=== PATIENT | female | born 1965 | race Caucasian/White ===

== ENCOUNTER 2018-04-02 09:33 | Inpatient (IN) | payer MEDICARE, OTHER ==
[2018-04-02] MEDS ORDERED: SODIUM CHLORIDE 0.9% 1,000 ML IV STA (10:33)
[2018-04-02] MEDS ORDERED: ONDANSETRON 4 MG/2 ML VIAL IVP STA (10:33)
[2018-04-02] MEDS ORDERED: FAMOTIDINE 20 MG/2 ML VIAL IV STA (10:34)
[2018-04-02 11:10] LABS: Basophils # (A) 0.1 k/uL (0-0.2); Basophils % (A) 1 %; Eosinophils # (A) 0.1 k/uL (0-0.7); Eosinophils % (A) 2 %; HCT 40.4 % (34.0-46.0); Lymphocytes # (A) 2.7 k/uL (1.0-4.8); Lymphocytes % (A) 31 %; MCH 30.6 pg (25.0-35.0); MCHC 32.2 g/dL (31.0-37.0); MCV 95.1 fL (80.0-100.0); Monocytes # (A) 0.7 k/uL (0-1.0); Monocytes % (A) 8 %; Neutrophils # (A) 4.9 k/uL (1.3-7.7); Neutrophils % (A) 56 %; Platelet Count 368 k/uL (150-450); RBC 4.25 m/uL (3.80-5.40); RDW 12.6 % (11.5-15.5); WBC 8.7 k/uL (3.8-10.6)
[2018-04-02 11:20] LABS: ALT 16 U/L (9-52); AST 17 U/L (14-36); Albumin 3.6 g/dL (3.5-5.0); Alkaline Phosphatase 55 U/L (38-126); Amylase 37 U/L (30-110); Anion Gap 8 mmol/L; Appearance,Urine Clear (Clear); Bilirubin,Urine Negative (Negative); Blood Urea Nitrogen 19 mg/dL (7-17); Blood,Urine Negative (Negative); Calcium 8.8 mg/dL (8.4-10.2); Carbon Dioxide 31 mmol/L (22-30); Chloride 103 mmol/L (98-107); Color,Urine Yellow; Glucose 83 mg/dL (74-99); Glucose,Urine (UA) Negative (Negative); Ketones,Urine Negative (Negative); Leukocyte Esterase,Urine Small (Negative); Lipase 52 U/L (23-300); Mucus,Urine Moderate /hpf; Nitrite,Urine Negative (Negative); PH, Urine 6.5 (5.0-8.0); Potassium 3.8 mmol/L (3.5-5.1); Protein,Urine Trace (Negative); Sodium 142 mmol/L (137-145); Specific Gravity,Urine 1.018 (1.001-1.035); Squamous Epithelial Cell,Urine 3 /hpf (0-4); Total Bilirubin 0.3 mg/dL (0.2-1.3); Total Protein 6.5 g/dL (6.3-8.2); Urobilinogen,Urine <2.0 mg/dL (<2.0); WBC,Urine 3 /hpf (0-5)
--- NOTE | 2018-04-02 12:19 | ED ---
General Adult HPI - General Chief complaint: Abdominal Pain Stated complaint: weakness, fatigue, abdominal problems Time Seen by Provider: 04/02/18 10:08 Source: patient, RN notes reviewed Mode of arrival: ambulatory Limitations: no limitations - History of Present Illness Initial comments: Patient is a 52-year-old female presented to the emergency room today with chief complaint of abdominal pain. Patient does admit that she's been expressing abdominal discomfort over the last several months. She states that she has had imaging and blood work obtained. She's been to [facility]. Patient states that she's lost 60 pounds over the last several months. She states that she's had a decreased appetite. She states that she's had bouts of constipation was given medication and then had diarrhea. She states bowel movements are normal at this time. States still expressing pain throughout the abdomen. Patient denies any other complaints or symptoms. Patient denies any recent fever, chills, shortness of breath, chest pain, back pain, headaches or visual changes, or any other complaints - Related Data Home Medications Medication Instructions Recorded Confirmed Gabapentin 800 mg PO TID 03/25/15 04/02/18 Meclizine [Antivert] 25 mg PO BID 03/26/15 04/02/18 clonazePAM [KlonoPIN] 1 mg PO TID 03/26/15 04/02/18 Albuterol Sulfate [Proair Hfa] 2 puff INHALATION RT-DAILY 07/19/15 04/02/18 Ibuprofen [Motrin] 1 tab PO TID 07/19/15 04/02/18 SUMAtriptan [Imitrex] 5 mg INHALATION DAILY 07/19/15 04/02/18 Albuterol Nebulized [Ventolin 2.5 mg INHALATION RT-Q4H 04/02/18 04/02/18 Nebulized] Cholecalciferol [Vitamin D3] 1,000 unit PO DAILY 04/02/18 04/02/18 Levothyroxine Sodium [Synthroid] 75 mcg PO DAILY 04/02/18 04/02/18 Methocarbamol [Robaxin-750] 750 mg PO TID 04/02/18 04/02/18 Ondansetron [Zofran] 4 mg PO Q8HR PRN 04/02/18 04/02/18 Polyethylene Glycol 3350 [Miralax] 17 gm PO DAILY 04/02/18 04/02/18 lamoTRIgine [LaMICtal] 200 mg PO DAILY 04/02/18 04/02/18 oxyCODONE-APAP 10-325MG [Percocet 1 tab PO TID 04/02/18 04/02/18 10-325 mg] traZODone HCL [Desyrel] 100 mg PO HS 04/02/18 04/02/18 Allergies Allergy/AdvReac Type Severity Reaction Status Date / Time pregabalin [From Lyrica] Allergy Anaphylaxis Verified 04/02/18 10:18 Review of Systems ROS Statement: Those systems with pertinent positive or pertinent negative responses have been documented in the HPI. ROS Other: All systems not noted in ROS Statement are negative. Past Medical History Past Medical History: Pneumonia, Thyroid Disorder Additional Past Medical History / Comment(s): chronic pain, pneumonia X2 (01/26), IBS History of Any Multi-Drug Resistant Organisms: None Reported Past Surgical History: Section, Cholecystectomy, Orthopedic Surgery Additional Past Surgical History / Comment(s): thyroidectomy, cervical, lumbar shoulder repair Past Anesthesia/Blood Transfusion Reactions: Previous Problems w/ Anesthesia Additional Past Anesthesia/Blood Transfusion Reaction / Comment(s): Trouble waking up with anesthesia Past Psychological History: No Psychological Hx Reported Smoking Status: Current every day smoker Past Alcohol Use History: None Reported Past Drug Use History: None Reported - Past Family History Mother Additional Family Medical History / Comment(s): VRE General Exam - General Exam Comments Initial Comments: General: The patient is awake and alert, in no distress, and does not appear acutely ill. Eye: Pupils are equal, round and reactive to light. Extra-ocular movements are intact. No nystagmus. There is normal conjunctiva bilaterally. No signs of icterus. Ears, nose, mouth and throat: There are moist mucous membranes and no oral lesions. Neck: The neck is supple, there is no tenderness or JVD. Cardiovascular: There is a regular rate and rhythm. No murmur, rub or gallop is appreciated. Respiratory: Lungs are clear to auscultation, respirations are non-labored, breath sounds are equal. No wheezes, stridor, rales, or rhonchi. Gastrointestinal: Soft and palpation. Patient does have mild tenderness in epigastric and upper and lower parts. No rebound, guarding or CVA tenderness. Musculoskeletal: Normal ROM, no tenderness. Sensation intact. Strength 5/5. Pulses equal bilaterally 2+. Neurological: A&O x 3. CN II-XII intact, There are no obvious motor or sensory deficits. Coordination appears grossly intact. Speech is normal. Skin: Skin is warm and dry and no rashes or lesions are noted. Psychiatric: Cooperative, appropriate mood & affect, normal judgment. Limitations: no limitations Course Vital Signs 04/02/18 04/02/18 04/02/18 09:48 12:54 14:00 Temperature 98.7 F Pulse Rate 107 H 76 73 Respiratory 18 18 18 Rate Blood Pressure 90/58 85/55 93/61 O2 Sat by Pulse 96 95 97 Oximetry 04/02/18 04/02/18 04/02/18 14:01 14:15 14:26 Temperature 98.4 F Pulse Rate 75 Respiratory 18 18 Rate Blood Pressure 93/61 93/61 98/70 O2 Sat by Pulse 98 97 100 Oximetry Medical Decision Making - Medical Decision Making Patient reexamined at this time is still experiencing some lower abdominal discomfort. Patient's blood pressure she's been hypotensive 90s over 70s here in the emergency room. Patient's CT the abdomen and pelvis does show proctocolitis. She does have a 64 with also last several months. Labs been reviewed. Patient will be admitted to the hospital with consult to GI. - Lab Data Result diagrams: 04/02/18 10:55 04/02/18 10:55 Lab Results 04/02/18 04/02/18 04/02/18 Range/Units 10:55 10:55 10:55 WBC 8.7 (3.8-10.6) k/uL RBC 4.25 (3.80-5.40) m/uL Hgb 13.0 (11.4-16.0) gm/dL Hct 40.4 (34.0-46.0) % MCV 95.1 (80.0-100.0) fL MCH 30.6 (25.0-35.0) pg MCHC 32.2 (31.0-37.0) g/dL RDW 12.6 (11.5-15.5) % Plt Count 368 (150-450) k/uL Neutrophils % 56 % Lymphocytes % 31 % Monocytes % 8 % Eosinophils % 2 % Basophils % 1 % Neutrophils # 4.9 (1.3-7.7) k/uL Lymphocytes # 2.7 (1.0-4.8) k/uL Monocytes # 0.7 (0-1.0) k/uL Eosinophils # 0.1 (0-0.7) k/uL Basophils # 0.1 (0-0.2) k/uL Sodium 142 (137-145) mmol/L Potassium 3.8 (3.5-5.1) mmol/L Chloride 103 (98-107) mmol/L Carbon Dioxide 31 H (22-30) mmol/L Anion Gap 8 mmol/L BUN 19 H (7-17) mg/dL Creatinine 0.58 (0.52-1.04) mg/dL Est GFR (CKD-EPI)AfAm >90 (>60 ml/min/1.73 sqM) Est GFR (CKD-EPI)NonAf >90 (>60 ml/min/1.73 sqM) Glucose 83 (74-99) mg/dL Calcium 8.8 (8.4-10.2) mg/dL Total Bilirubin 0.3 (0.2-1.3) mg/dL AST 17 (14-36) U/L ALT 16 (9-52) U/L Alkaline Phosphatase 55 (38-126) U/L Total Protein 6.5 (6.3-8.2) g/dL Albumin 3.6 (3.5-5.0) g/dL Amylase 37 (30-110) U/L Lipase 52 (23-300) U/L Urine Color Yellow Urine Appearance Clear (Clear) Urine pH 6.5 (5.0-8.0) Ur Specific [place] 1.018 (1.001-1.035) Urine Protein Trace H (Negative) Urine Glucose (UA) Negative (Negative) Urine Ketones Negative (Negative) Urine Blood Negative (Negative) Urine Nitrite Negative (Negative) Urine Bilirubin Negative (Negative) Urine Urobilinogen <2.0 (<2.0) mg/dL Ur Leukocyte Esterase Small H (Negative) Urine WBC 3 (0-5) /hpf Ur Squamous Epith Cells 3 (0-4) /hpf Urine Mucus Moderate H (None) /hpf Disposition Clinical Impression: Colitis Disposition: ADMITTED IP TO THIS HOSP Condition: Good Is patient prescribed a controlled substance at d/c from ED?: No Referrals: Soledad Hernandez MD [Primary Care Provider] - 1-2 days Time of Disposition: 14:53
--- NOTE | 2018-04-02 12:31 | CT ---
EXAMINATION TYPE: CT abdomen pelvis w con DATE OF EXAM: 04/02/2018 COMPARISON: None HISTORY: Generalized abd pain, fatigue CT DLP: 533.9 mGycm CONTRAST: CT scan of the abdomen and pelvis is performed without Oral Contrast and with IV Contrast, patient in jected with 100 mL of Isovue 300. FINDINGS: LUNG BASES-: No visible nodule. No infiltrate. LIVER/GB: The gallbladder surgically absent. No space occupying hepatic lesion. Biliary tree is of normal caliber. PANCREAS: No inflammation. No distinct mass. SPLEEN: No splenic enlargement. No lesion seen. ADRENALS: No nodule. No thickening. KIDNEYS/BLADDER: No hydronephrosis. Nonobstructing left-sided nephrolithiasis with 2 calculi measuri ng 4 and 3 mm respectively. No distinct renal mass. Urinary bladder grossly unremarkable. BOWEL: Normal appendix. There is rectosigmoid wall thickening which may reflect proctocolitis nonspec ific type. GENITAL ORGANS: No gross abnormality. LYMPH NODES: No greater than 1cm abdominal or pelvic lymph nodes are appreciated. AORTA: No significant abnormality. OSSEOUS STRUCTURES: No significant abnormality is seen. OTHER: No significant additional abnormality is seen. IMPRESSION: 1. Suspect nonspecific proctocolitis.
[2018-04-02] MEDS ORDERED: SODIUM CHLORIDE 0.9% 500 ML 500 ML IV ONE (13:56)
[2018-04-02] MEDS ORDERED: NALOXONE 0.4 MG/ML 1 ML VIAL IV PRN (14:54)
[2018-04-02] MEDS ORDERED: SODIUM CHLORIDE 0.9% 1,000 ML IV ONE (14:54)
[2018-04-02] MEDS ORDERED: ALBUTEROL NEBULIZED 2.5 MG/3 ML INHALATION SCH (20:00)
[2018-04-02] MEDS ORDERED: ALBUTEROL NEBULIZED 2.5 MG/3 ML INHALATION PRN (20:13)
[2018-04-02] MEDS ORDERED: MELATONIN 3 MG TABLET PO PRN (20:32)
[2018-04-02] MEDS: CHOLECALCIFEROL 1,000 UNIT TAB PO SCH (21:23)
[2018-04-02] MEDS: GABAPENTIN 400 MG CAP PO SCH (21:23)
[2018-04-02] MEDS: MECLIZINE 25 MG TAB PO PRN (21:23)
[2018-04-02] MEDS: clonazePAM 1 MG TAB PO SCH (21:23)
[2018-04-02] MEDS: FAMOTIDINE 20 MG TAB PO SCH (21:24)
[2018-04-02] MEDS: HEPARIN SODIUM,PORCINE 5,000 UNIT/ML 1 ML VIAL SQ SCH (21:24)
[2018-04-02] MEDS: oxyCODONE-APAP 10-325MG 1 EACH TAB PO PRN (21:24)
[2018-04-02] MEDS: traZODone HCL 100 MG TAB PO SCH (21:24)
[2018-04-02] MEDS: NICOTINE 21MG/24HR PATCH TRANSDERM SCH (21:33)
[2018-04-02] MEDS: LEVOFLOXACIN 500MG-D5W PMX 500 MG in DEXTROSE/WATER 1 100ML.BAG IVPB SCH (22:19)
[2018-04-02] MEDS ORDERED: LORazepam 0.5 MG TAB PO PRN (22:21)
[2018-04-02] MEDS ORDERED: ACETAMINOPHEN TAB 500 MG TAB PO PRN (22:21)
[2018-04-02] MEDS: METHOCARBAMOL 750 MG TAB PO SCH (23:14)
--- NOTE | 2018-04-03 02:13 | HP ---
HISTORY AND PHYSICAL DATE OF SERVICE: 04/02/2018 CHIEF COMPLAINT: Fatigue, abdominal pain. HISTORY OF PRESENT ILLNESS: This 52-year-old woman with a past medical history of multiple medical problems such as fibromyalgia, memory impairment, hypothyroidism, chronic pain syndrome, irritable bowel syndrome, cholecystectomy, being followed by in the outpatient setting, has been complaining of abdominal symptoms for the last several months. The patient has also been to [facility] because of increasing difficulty with abdominal pain and symptoms. The patient came to [facility] and was admitted for further evaluation and treatment. A CT scan of the abdomen and pelvis was done which showed diffuse nonspecific proctocolitis. The patient was admitted for evaluation and treatment. There is no history of fevers or rigors. No history of headache, loss of consciousness, seizures. PAST MEDICAL HISTORY: History of memory impairment, fibromyalgia, history of IBS, chronic pain syndrome, neuropathy. MEDICATIONS: Prior to admission include home medications: 1. Trazodone 100 mg at bedtime. 2. Percocet t.i.d. 3. Lamictal 200 mg. 4. Klonopin 1 mg t.i.d. 5. Imitrex 5 mg daily. 6. MiraLAX 17 g daily. 7. Zofran 4 mg every 8 hours. 8. Robaxin 750 p.o. t.i.d. 9. Antivert 25 mg b.i.d. 10.Synthroid 75 mcg. 11.Motrin 1 tablet p.o. t.i.d. 12.Gabapentin 800 mg t.i.d. 13.Vitamin D 3000 daily. 15.Ventolin 2.5 every 4 hours p.r.n. ALLERGIES: LYRICA. FAMILY HISTORY: History of cancer, dementia, diabetes mellitus in the family. SOCIAL HISTORY: History of smoking. History of THC. REVIEW OF SYSTEMS: ENT: No diminished hearing or vision. CARDIOVASCULAR: No angina or palpitations. RESPIRATORY: No cough or hemoptysis. GI: No nausea or vomiting. : No dysuria or hematuria. NERVOUS SYSTEM: No numbness or weakness. ALLERGY/IMMUNOLOGY: As mentioned. HEMATOLOGY/ONCOLOGY: No history or anemia. ENDOCRINE: No history of diabetes or hypothyroidism. CONSTITUTIONAL: As mentioned. DERMATOLOGY: Negative. RHEUMATOID: Negative. PSYCH: As mentioned earlier. PHYSICAL EXAM: Patient is alert, oriented x3. Pulse 72, blood pressure 192/59, respirations 16, temperature 98.2, pulse ox 94% on room air. HEENT: Conjunctivae normal. Oral mucosa moist. NECK: No jugular venous distention. No lymph node enlargement. CARDIOVASCULAR: S1 and S2 muffled. LUNGS: Breath sounds diminished in the bases. Scattered rhonchi and crackles. ABDOMEN: Soft, nontender. No mass palpable. LEGS: No edema, no swelling. NERVOUS SYSTEM: Higher functions as mentioned. Moves all limbs with no focal deficits. LYMPHATIC: NO lymph nodes palpable in the neck, axillae or groin. LAB STUDIES: At this time, CBC within normal limits. BMP within normal limits. UA noted. ASSESSMENT: 1. Acute proctocolitis with abdominal discomfort, for evaluation. 2. History of fibromyalgia. 3. History of memory impairment. 4. History of pneumonia. 5. Hypothyroidism. 6. Chronic pain syndrome. 7. History of irritable bowel syndrome. 8. History of peripheral neuropathy. 9. History of section. 10.History of nicotine dependence. 11.Bipolar, depression. 12.History of nicotine dependence. RECOMMENDATIONS AND DISCUSSION: This 52-year-old woman who presented with multiple complex medical issues, we will monitor the patient closely, continue the current management and symptomatic treatment. We will initiate symptomatic treatment. Empiric antibiotics will be given. Otherwise, I would also recommend Gastroenterology consultation. Repeat labs. Guarded prognosis because of multiple complex medical issues. See orders for details. Patient is on clear liquids currently. Home medication reconciliation was noted. Further recommendations to follow. MMODL / IJN: [id number] / GARCÍA
[2018-04-03] MEDS: SODIUM CHLORIDE 0.9% 1,000 ML IV SCH ×2 (05:49→16:33)
[2018-04-03] MEDS: LEVOTHYROXINE 75 MCG TAB PO SCH (05:49)
[2018-04-03] MEDS: NICOTINE 21MG/24HR PATCH TRANSDERM SCH (07:36)
[2018-04-03] MEDS: PANTOPRAZOLE 40 MG/10 ML VIAL IVP SCH (07:36)
[2018-04-03] MEDS: lamoTRIgine 100 MG TAB PO SCH (07:37)
[2018-04-03] MEDS: METHOCARBAMOL 750 MG TAB PO SCH ×3 (07:37→21:34)
[2018-04-03] MEDS: HEPARIN SODIUM,PORCINE 5,000 UNIT/ML 1 ML VIAL SQ SCH ×2 (07:37→21:34)
[2018-04-03] MEDS: CHOLECALCIFEROL 1,000 UNIT TAB PO SCH (07:38)
[2018-04-03] MEDS: GABAPENTIN 400 MG CAP PO SCH ×3 (07:38→21:34)
[2018-04-03] MEDS: FAMOTIDINE 20 MG TAB PO SCH ×2 (07:38→21:34)
[2018-04-03] MEDS: POLYETHYLENE GLYCOL 3350 17 GM POWD.PACK PO SCH (07:39)
[2018-04-03] MEDS: clonazePAM 1 MG TAB PO SCH ×3 (07:43→21:41)
[2018-04-03] MEDS: metroNIDAZOLE-NS PMX 500 MG in SALINE 1 100ML.BAG IVPB SCH ×3 (07:43→16:33)
[2018-04-03 08:12] LABS: Basophils % (A) 0 %; Eosinophils # (A) 0.1 k/uL (0-0.7); Eosinophils % (A) 1 %; HCT 32.8 % (34.0-46.0); HGB 10.3 gm/dL (11.4-16.0); Lymphocytes # (A) 2.9 k/uL (1.0-4.8); Lymphocytes % (A) 45 %; MCHC 31.5 g/dL (31.0-37.0); MCV 95.2 fL (80.0-100.0); Mean Platelet Volume 7.2; Monocytes # (A) 0.6 k/uL (0-1.0); Monocytes % (A) 8 %; Neutrophils # (A) 2.9 k/uL (1.3-7.7); Neutrophils % (A) 43 %; Platelet Count 290 k/uL (150-450); RBC 3.44 m/uL (3.80-5.40); RDW 12.8 % (11.5-15.5); WBC 6.6 k/uL (3.8-10.6)
[2018-04-03 08:14] LABS: ALT 21 U/L (9-52); AST 14 U/L (14-36); Albumin 2.4 g/dL (3.5-5.0); Alkaline Phosphatase 47 U/L (38-126); Anion Gap 2 mmol/L; Blood Urea Nitrogen 13 mg/dL (7-17); Calcium 7.7 mg/dL (8.4-10.2); Carbon Dioxide 28 mmol/L (22-30); Chloride 112 mmol/L (98-107); Glucose 75 mg/dL (74-99); Potassium 4.1 mmol/L (3.5-5.1); Sodium 142 mmol/L (137-145); Total Bilirubin 0.2 mg/dL (0.2-1.3); Total Protein 4.8 g/dL (6.3-8.2)
[2018-04-03] MEDS: ONDANSETRON 4 MG/2 ML VIAL IVP PRN ×2 (08:35→16:34)
[2018-04-03] MEDS: MECLIZINE 25 MG TAB PO PRN (08:36)
[2018-04-03] MEDS: ALBUTEROL NEBULIZED 2.5 MG/3 ML INHALATION SCH (08:41)
[2018-04-03] MEDS: IMITREX INHALATION SCH (11:07)
[2018-04-03] MEDS: traZODone HCL 100 MG TAB PO SCH (21:34)
[2018-04-03] MEDS: LEVOFLOXACIN 500MG-D5W PMX 500 MG in DEXTROSE/WATER 1 100ML.BAG IVPB SCH (21:35)
[2018-04-03] MEDS: MECLIZINE 25 MG TAB PO SCH (21:35)
--- NOTE | 2018-04-03 22:07 | PN ---
PROGRESS NOTE DATE OF SERVICE: 04/03/2018 This 52-year-old woman who was admitted with acute proctocolitis with abdominal discomfort is being closely monitored at this time. No chest pain. No palpitations. No fever. The patient is on broad-spectrum IV antibiotics empirically. No chest pain. No palpitation. PHYSICAL EXAM: Alert and oriented x3. Pulse 71, blood pressure 87/52, respirations 16, temperature 97.2, pulse ox 98% on room air. HEENT: Conjunctivae normal. Oral mucosa moist. Neck is no jugular venous distention. No lymph node enlargement. CARDIOVASCULAR: S1, S2. RESPIRATORY: Breath sounds diminished in the bases. No rhonchi, no crackles. ABDOMEN: Soft, nontender. No mass palpable. LEGS: No edema. NERVOUS SYSTEM: Higher functions as mentioned. Moves all four limbs. No focal deficits. LYMPHATIC: No lymphadenopathy in the neck, axillae, groin. SKIN: No ulcer, rash, bleeding. LAB STUDIES: At this time shows WBC 6.2, hemoglobin 10.3, and calcium 7.7. ASSESSMENT: 1. Acute proctocolitis with abdominal discomfort for evaluation. 2. History of fibromyalgia. 3. History of memory impairment. 4. History of pneumonia. 5. Relative hypotension. 6. Hypothyroidism. 7. Chronic pain syndrome. 8. Irritable bowel syndrome. 9. Peripheral neuropathy. 10.History of section. 11.Remote history of nicotine dependence. 12.Bipolar, depression. 13.History of nicotine dependence. RECOMMENDATIONS AND DISCUSSION: I recommend to continue current management, continue monitoring, and symptomatic treatment. Otherwise at this time I recommend continue with current medications. Continue with empiric antibiotics. I would also recommend 8:00 am cortisone. Guarded prognosis because of multiple complex medical issues. Further recommendations to follow. MMODL / IJN: [id number] /
[2018-04-04] MEDS: metroNIDAZOLE-NS PMX 500 MG in SALINE 1 100ML.BAG IVPB SCH ×4 (00:29→23:22)
[2018-04-04] MEDS: SODIUM CHLORIDE 0.9% 1,000 ML IV SCH ×3 (00:31→15:53)
[2018-04-04] MEDS: LEVOTHYROXINE 75 MCG TAB PO SCH (06:10)
[2018-04-04] MEDS: NICOTINE 21MG/24HR PATCH TRANSDERM SCH (07:42)
[2018-04-04] MEDS: METHOCARBAMOL 750 MG TAB PO SCH ×3 (07:43→20:50)
[2018-04-04] MEDS: lamoTRIgine 100 MG TAB PO SCH (07:43)
[2018-04-04] MEDS: GABAPENTIN 400 MG CAP PO SCH ×3 (07:43→20:50)
[2018-04-04] MEDS: PANTOPRAZOLE 40 MG/10 ML VIAL IVP SCH (07:44)
[2018-04-04] MEDS: IMITREX INHALATION SCH (07:45)
[2018-04-04] MEDS: POLYETHYLENE GLYCOL 3350 17 GM POWD.PACK PO SCH (07:45)
[2018-04-04] MEDS: HEPARIN SODIUM,PORCINE 5,000 UNIT/ML 1 ML VIAL SQ SCH ×2 (07:45→20:49)
[2018-04-04] MEDS: clonazePAM 1 MG TAB PO SCH ×3 (07:46→20:50)
[2018-04-04] MEDS: ONDANSETRON 4 MG/2 ML VIAL IVP PRN ×2 (07:46→15:54)
[2018-04-04] MEDS: MECLIZINE 25 MG TAB PO SCH ×2 (07:46→20:50)
[2018-04-04] MEDS: CHOLECALCIFEROL 1,000 UNIT TAB PO SCH (07:47)
[2018-04-04] MEDS: FAMOTIDINE 20 MG TAB PO SCH ×2 (07:47→20:49)
[2018-04-04] MEDS: ALBUTEROL NEBULIZED 2.5 MG/3 ML INHALATION SCH (08:56)
[2018-04-04 10:03] LABS: Anion Gap 5 mmol/L; Blood Urea Nitrogen 8 mg/dL (7-17); Carbon Dioxide 28 mmol/L (22-30); Chloride 111 mmol/L (98-107); Glucose 125 mg/dL (74-99); Sodium 144 mmol/L (137-145)
--- NOTE | 2018-04-04 19:48 | PN ---
PROGRESS NOTE DATE OF SERVICE: 04/04/2018 This 52-year-old woman was admitted with possible proctocolitis has been closely monitored. No chest pain. No palpitations. No fever. Patient has been on empiric antibiotics. Gastroenterology evaluation has been sought. PHYSICAL EXAM: Alert and oriented x3. Pulse 74, blood pressure 91/53, respiration 20, temperature 98.2, pulse ox 97% on room air. HEENT: Conjunctivae normal. Oral mucosa moist. Neck is no jugular venous distention. No carotid bruit. No lymph node enlargement. CARDIOVASCULAR: S1, S2. RESPIRATORY: Breath sounds diminished in the bases. No rhonchi, no crackles. ABDOMEN: Soft. Mild diffuse discomfort. No guarding. No mass palpable. LEGS: No edema. NERVOUS SYSTEM: No focal deficits. LABS: WBC 6.2, hemoglobin is 10.3. Other labs are noted. ASSESSMENT: 1. Acute proctocolitis with abdominal discomfort for evaluation. 2. History of fibromyalgia. 3. History of memory impairment. 4. History of pneumonia. 5. Relative hypotension. 6. Hypothyroidism. 7. Chronic pain syndrome. 8. Irritable bowel syndrome. 9. Peripheral neuropathy. 10.History of section. 11.Remote history of nicotine dependence. 12.Bipolar, depression. RECOMMENDATIONS AND DISCUSSION: In this 52-year-old woman who presented with multiple complex medical issues, we will monitor the patient closely. Continue the current management and symptomatic treatment. Otherwise at this time, we will continue the antibiotics and advise a diet. Closely follow with Gastroenterology. Guarded prognosis. Further recommendations to follow. MMODL / IJN: [id number] /
[2018-04-04] MEDS: traZODone HCL 100 MG TAB PO SCH (20:49)
[2018-04-04] MEDS: oxyCODONE-APAP 10-325MG 1 EACH TAB PO PRN (20:50)
[2018-04-04] MEDS: LEVOFLOXACIN 500MG-D5W PMX 500 MG in DEXTROSE/WATER 1 100ML.BAG IVPB SCH (21:54)
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
[2018-04-05] MEDS: LEVOTHYROXINE 75 MCG TAB PO SCH (05:34)
[2018-04-05] MEDS: ALBUTEROL NEBULIZED 2.5 MG/3 ML INHALATION SCH (07:32)
[2018-04-05] MEDS: POLYETHYLENE GLYCOL 3350 17 GM POWD.PACK PO SCH (08:18)
[2018-04-05] MEDS: METHOCARBAMOL 750 MG TAB PO SCH ×3 (08:18→21:07)
[2018-04-05] MEDS: PANTOPRAZOLE 40 MG/10 ML VIAL IVP SCH (08:18)
[2018-04-05] MEDS: NICOTINE 21MG/24HR PATCH TRANSDERM SCH (08:19)
[2018-04-05] MEDS: GABAPENTIN 400 MG CAP PO SCH ×3 (08:20→21:06)
[2018-04-05] MEDS: FAMOTIDINE 20 MG TAB PO SCH ×2 (08:20→21:05)
[2018-04-05] MEDS: CHOLECALCIFEROL 1,000 UNIT TAB PO SCH (08:20)
[2018-04-05] MEDS: HEPARIN SODIUM,PORCINE 5,000 UNIT/ML 1 ML VIAL SQ SCH ×2 (08:21→21:06)
[2018-04-05] MEDS: lamoTRIgine 100 MG TAB PO SCH (08:21)
[2018-04-05] MEDS: SODIUM CHLORIDE 0.9% 1,000 ML IV SCH ×3 (08:21→23:38)
[2018-04-05] MEDS: MECLIZINE 25 MG TAB PO SCH ×2 (08:21→21:06)
[2018-04-05] MEDS: IMITREX INHALATION SCH (08:21)
[2018-04-05 08:30] LABS: Anion Gap 3 mmol/L; Blood Urea Nitrogen 9 mg/dL (7-17); Calcium 8.2 mg/dL (8.4-10.2); Carbon Dioxide 27 mmol/L (22-30); Chloride 114 mmol/L (98-107); Glucose 84 mg/dL (74-99); Potassium 4.6 mmol/L (3.5-5.1); Sodium 144 mmol/L (137-145)
[2018-04-05] MEDS: metroNIDAZOLE-NS PMX 500 MG in SALINE 1 100ML.BAG IVPB SCH (08:32)
[2018-04-05] MEDS: clonazePAM 1 MG TAB PO SCH ×3 (08:32→21:05)
[2018-04-05 12:05] VITALS: BMI 18.7
[2018-04-05] MEDS: oxyCODONE-APAP 10-325MG 1 EACH TAB PO PRN ×2 (12:30→21:07)
[2018-04-05] MEDS: metroNIDAZOLE 500 MG TAB PO SCH ×2 (16:21→23:38)
[2018-04-05] MEDS: traZODone HCL 100 MG TAB PO SCH (21:06)
[2018-04-05] MEDS: ONDANSETRON 4 MG/2 ML VIAL IVP PRN (21:21)
--- NOTE | 2018-04-05 21:31 | PN ---
PROGRESS NOTE DATE OF SERVICE: 04/05/2018 This 52-year-old woman was admitted with possible colitis also evaluated by Gastroenterology. No chest pain. No palpitations. No fever. EXAM: Alert and oriented x3. The pulse is 33, blood pressure 105/57, respiration 20, temperature is 98 degrees, pulse ox 96% on 2 L. HEENT: Conjunctivae normal. NECK: No jugular venous distention. CARDIOVASCULAR: S1, S2 muffled. RESPIRATORY: Breath sounds diminished in the bases. Bilateral scattered rhonchi and crackles. ABDOMEN: Soft, obese, nontender. LEGS: No edema. NERVOUS SYSTEM: No focal deficits. LABS: WBC 6.2, hemoglobin 10.3. ASSESSMENT: 1. Acute proctocolitis with abdominal discomfort for evaluation. 2. History of fibromyalgia. 3. History of memory impairment. 4. History of pneumonia. 5. Relative hypotension. 6. Hypothyroidism. 7. Chronic pain syndrome. 8. Irritable bowel syndrome. 9. Peripheral neuropathy. 10.History of section. 11.Remote history of nicotine dependence. 12.Bipolar depression. RECOMMENDATIONS AND DISCUSSION: I recommend to continue current management and symptomatic treatment. Otherwise at this time, continue the bronchodilators. Prognosis guarded. Further recommendations to follow. MMODL / IJN: [id number] /
[2018-04-05] MEDS ORDERED: LEVOFLOXACIN 500 MG TAB PO SCH (22:00)
--- NOTE | 2018-04-06 00:57 | P.PN ---
Subjective Progress Note Date: 04/05/18 Principal diagnosis: Diarrhea, dehydration, proctosigmoiditis She is tolerating her diet. No bowel movements since presentation. So reporting abdominal pain. Objective - Vital Signs Vital signs: Vital Signs Temp 98.4 F 04/05/18 21:20 Pulse 79 04/05/18 21:20 Resp 16 04/05/18 21:20 BP 104/66 04/05/18 21:20 Pulse Ox 94 L 04/05/18 21:20 Intake & Output 04/05/18 04/05/18 04/06/18 06:59 18:59 06:59 Weight 52.617 kg 52.617 kg Other: Voiding Method Toilet Toilet # Voids 2 2 1 - Exam On physical examination, patient appears comfortable in no apparent distress. HEAD: Normocephalic, atraumatic. EYES: No scleral icterus. No conjunctival injection. MOUTH: No lesions, tongue midline. NECK: Trachea midline, no gross abnormalities. CHEST: Clear to auscultation with no wheezing or rhonchi appreciated. HEART: Regular rate and rhythm. ABDOMEN: Soft, obese. Bowel sounds are positive. No organomegaly. No guarding or rigidity. EXTREMITIES: No pedal edema. SKIN: No rashes, no jaundice. NEUROLOGIC: Alert and oriented x3. No focal deficits. - Labs CBC & Chem 7: 04/03/18 07:26 04/05/18 07:00 Labs: Abnormal Lab Results - Last 24 Hours (Table) 04/05/18 Range/Units 07:00 Chloride 114 H (98-107) mmol/L Calcium 8.2 L (8.4-10.2) mg/dL Assessment and Plan (1) Irritable bowel syndrome (IBS) Narrative/Plan: Patient reports history of irritable bowel syndrome with constipation. Unclear how much that the symptoms are secondary to narcotic use. She was on a regimen of a magnesium formulation, MiraLAX and Colace at home and subsequently after taking this for approximately a week had multiple episodes of loose stool. Currently not having bowel movements. Current Visit: Yes Status: Acute Code(s): K58.9 - IRRITABLE BOWEL SYNDROME WITHOUT DIARRHEA SNOMED Code(s): 52318201 (2) Colitis Narrative/Plan: Nonspecific proctocolitis seen on CT scan of the abdomen. They be due to a gastroenteritis, findings secondary to recent loose bowel movements in the setting of copious laxative use, or other etiology. Bowel movements have stopped and concern for recurrent Clostridium difficile colitis is lower on the differential due to the patient not having current diarrhea. Current Visit: Yes Status: Acute Code(s): K52.9 - NONINFECTIVE GASTROENTERITIS AND COLITIS, UNSPECIFIED SNOMED Code(s): 85541633 Plan: Supportive care Okay for diet If diarrhea recurs will order stool studies Continue antibiotic treatments with 7 day course for treatment of possible gastroenteritis requiring hospitalization Patient's bowel regimen at home appears to be inadequate for her description. Agree with laxatives which have been tried, at this time the patient's constipation persists would try secretory laxatives such as lubiprostone or linaclotide. Patient not interested in starting laxative today. Extensively discussed with patient in no plan for endoscopic evaluation at this time. She was encouraged to follow up with the gastroenterology clinic. Thank you for allowing us to participate in the care of this patient we will continue to follow
[2018-04-06] MEDS: LEVOTHYROXINE 75 MCG TAB PO SCH (06:17)
[2018-04-06 08:41] LABS: Anion Gap 2 mmol/L; Blood Urea Nitrogen 10 mg/dL (7-17); Carbon Dioxide 31 mmol/L (22-30); Chloride 109 mmol/L (98-107); Glucose 85 mg/dL (74-99); Potassium 4.3 mmol/L (3.5-5.1); Sodium 142 mmol/L (137-145)
[2018-04-06] MEDS: NICOTINE 21MG/24HR PATCH TRANSDERM SCH (11:01)
[2018-04-06] MEDS: metroNIDAZOLE 500 MG TAB PO SCH ×2 (11:02→15:10)
[2018-04-06] MEDS: GABAPENTIN 400 MG CAP PO SCH ×2 (11:03→15:10)
[2018-04-06] MEDS: CHOLECALCIFEROL 1,000 UNIT TAB PO SCH (11:03)
[2018-04-06] MEDS: HEPARIN SODIUM,PORCINE 5,000 UNIT/ML 1 ML VIAL SQ SCH (11:04)
[2018-04-06] MEDS: lamoTRIgine 100 MG TAB PO SCH (11:04)
[2018-04-06] MEDS: METHOCARBAMOL 750 MG TAB PO SCH ×2 (11:04→15:10)
[2018-04-06] MEDS: PANTOPRAZOLE 40 MG/10 ML VIAL IVP SCH (11:05)
[2018-04-06] MEDS: clonazePAM 1 MG TAB PO SCH ×2 (11:07→15:10)
--- NOTE | 2018-04-06 11:09 | P.PN ---
Subjective Progress Note Date: 04/06/18 Principal diagnosis: Diarrhea dehydration proctosigmoiditis Tolerating diet. Afebrile. Still reports generalized abdominal pain. Requesting endoscopic exams. Objective - Vital Signs Vital signs: Vital Signs Temp 98.4 F 04/06/18 04:29 Pulse 68 04/06/18 04:29 Resp 16 04/06/18 04:29 BP 100/63 04/06/18 04:29 Pulse Ox 93 L 04/06/18 04:29 Intake & Output 04/05/18 04/06/18 04/06/18 18:59 06:59 18:59 Weight 52.617 kg Other: Voiding Method Toilet Toilet Toilet # Voids 2 1 - Exam General appearance: The patient is alert, oriented, in no acute distress. HET: Head is normocephalic and atraumatic. Pupils are equal and reactive. Oropharynx is clear without lesions. Neck: Supple without lymphadenopathy. Trachea midline. Heart: S1 S2. Regular rate and rhythm. Lungs: No crackles or wheezes are heard. Abdomen: Soft, diffuse mild tenderness across mid abdomen, nondistended with bowel sounds. No peritoneal signs. No palpable organomegaly or masses. Extremities: Normal skin color and turgor. No cyanosis, rash, ulceration, clubbing, or edema. Radial and pedal pulses are 2/4 bilaterally. Neurological: No focal deficits. Strength and sensation are grossly intact. - Labs CBC & Chem 7: 04/03/18 07:26 04/06/18 07:48 Labs: Abnormal Lab Results - Last 24 Hours (Table) 04/06/18 Range/Units 07:48 Chloride 109 H (98-107) mmol/L Carbon Dioxide 31 H (22-30) mmol/L Calcium 8.0 L (8.4-10.2) mg/dL Assessment and Plan (1) Colitis Narrative/Plan: History of IBSC with history of narcotic use. Admitted with diffuse abdominal pain with loose stools followed by constipation. Nonspecific proctocolitis seen on CT may be due to gastritis possible other etiologies. Status: Acute Code(s): K52.9 - NONINFECTIVE GASTROENTERITIS AND COLITIS, UNSPECIFIED SNOMED Code(s): 68684030 (2) Constipation Status: Acute Code(s): K59.00 - CONSTIPATION, UNSPECIFIED SNOMED Code(s): 96942336 (3) Irritable bowel syndrome (IBS) Status: Acute Code(s): K58.9 - IRRITABLE BOWEL SYNDROME WITHOUT DIARRHEA SNOMED Code(s): 50757238 Plan: 1. Head Doffer advised outpatient endoscopy. We'll continue to follow with you. DC per medicine. Assessment and plan of care discussed with Dr. Solomon
[2018-04-06] MEDS: MECLIZINE 25 MG TAB PO SCH (11:12)
[2018-04-06] MEDS: ALBUTEROL NEBULIZED 2.5 MG/3 ML INHALATION SCH (11:52)
[2018-04-06] MEDS: SODIUM CHLORIDE 0.9% 1,000 ML IV SCH (12:03)
[2018-04-06] MEDS: IMITREX INHALATION SCH (12:03)
[2018-04-06] MEDS: FAMOTIDINE 20 MG TAB PO SCH (12:04)
[2018-04-06 12:19] VITALS: BP 96/67; PULSE 78; RESP 18; TEMP 98
[2018-04-06] MEDS: POLYETHYLENE GLYCOL 3350 17 GM POWD.PACK PO SCH (12:35)
--- NOTE | 2018-04-06 13:26 | P.DS ---
Providers Date of admission: 04/02/18 14:54 Attending physician: Gladys Cowart Consults: 04/02/18 14:54 Consult Physician Stat Consulting Provider: Galileo Solomon Consult Reason/Comments: abd pain Do you want consulting provider notified?: Yes Primary care physician: Soleadd Hernandez Hospital Course: Patient given his abdominal pain was treated for proctocolitis mostly secondary to constipation. Patient is being discharged on the oral antibiotics ciprofloxacin and metronidazole. Discussed with the patient. Patient may have some gastritis too. Discussed with the gastroenterology and we do not believe patient will require emergent the upper GI endoscopy or colonoscopy. Patient will be discharged today. PHYSICAL EXAMINATION: GENERAL: The patient is alert and oriented x3, not in any acute distress. Well developed, well nourished. HEENT: Pupils are round and equally reacting to light. EOMI. No scleral icterus. No conjunctival pallor. Normocephalic, atraumatic. No pharyngeal erythema. No thyromegaly. CARDIOVASCULAR: S1 and S2 present. No murmurs, rubs, or gallops. PULMONARY: Chest is clear to auscultation, no wheezing or crackles. ABDOMEN: Soft, nontender, nondistended, normoactive bowel sounds. No palpable organomegaly. MUSCULOSKELETAL: No joint swelling or deformity. EXTREMITIES: No cyanosis, clubbing, or pedal edema. NEUROLOGICAL: Gross neurological examination did not reveal any focal deficits. SKIN: No rashes. Please refer to the dictation from Dr. Cowart for further details of hospitalization course and other medical problems Patient Condition at Discharge: Good Plan - Discharge Summary Discharge Rx Participant: Yes New Discharge Prescriptions: New Acetaminophen Tab [Tylenol] 500 mg PO Q6HR PRN tab PRN Reason: Fever And/ Or Pain Ciprofloxacin [Cipro Susp] 500 mg PO BID #10 ml metroNIDAZOLE [Flagyl] 500 mg PO Q8HR #21 tab Omeprazole [PriLOSEC] 40 mg PO AC-BRKFST #14 capsule. Continue Gabapentin 800 mg PO TID Meclizine [Antivert] 25 mg PO BID clonazePAM [KlonoPIN] 1 mg PO TID Albuterol Sulfate [Proair Hfa] 2 puff INHALATION RT-DAILY SUMAtriptan [Imitrex] 5 mg INHALATION DAILY Ibuprofen [Motrin] 1 tab PO TID Levothyroxine Sodium [Synthroid] 75 mcg PO DAILY Cholecalciferol [Vitamin D3] 1,000 unit PO DAILY lamoTRIgine [LaMICtal] 200 mg PO DAILY Polyethylene Glycol 3350 [Miralax] 17 gm PO DAILY Ondansetron [Zofran] 4 mg PO Q8HR PRN PRN Reason: Nausea Albuterol Nebulized [Ventolin Nebulized] 2.5 mg INHALATION RT-Q4H traZODone HCL [Desyrel] 100 mg PO HS oxyCODONE-APAP 10-325MG [Percocet 10-325 mg] 1 tab PO TID Methocarbamol [Robaxin-750] 750 mg PO TID Discharge Medication List Gabapentin 800 mg PO TID 03/25/15 [History] Meclizine [Antivert] 25 mg PO BID 03/26/15 [History] clonazePAM [KlonoPIN] 1 mg PO TID 03/26/15 [History] Albuterol Sulfate [Proair Hfa] 2 puff INHALATION RT-DAILY 07/19/15 [History] Ibuprofen [Motrin] 1 tab PO TID 07/19/15 [History] SUMAtriptan [Imitrex] 5 mg INHALATION DAILY 07/19/15 [History] Albuterol Nebulized [Ventolin Nebulized] 2.5 mg INHALATION RT-Q4H 04/02/18 [ History] Cholecalciferol [Vitamin D3] 1,000 unit PO DAILY 04/02/18 [History] Levothyroxine Sodium [Synthroid] 75 mcg PO DAILY 04/02/18 [History] Methocarbamol [Robaxin-750] 750 mg PO TID 04/02/18 [History] Ondansetron [Zofran] 4 mg PO Q8HR PRN 04/02/18 [History] Polyethylene Glycol 3350 [Miralax] 17 gm PO DAILY 04/02/18 [History] lamoTRIgine [LaMICtal] 200 mg PO DAILY 04/02/18 [History] oxyCODONE-APAP 10-325MG [Percocet 10-325 mg] 1 tab PO TID 04/02/18 [History] traZODone HCL [Desyrel] 100 mg PO HS 04/02/18 [History] Acetaminophen Tab [Tylenol] 500 mg PO Q6HR PRN tab 04/05/18 [Rx] Ciprofloxacin [Cipro Susp] 500 mg PO BID #10 ml 04/05/18 [Rx] metroNIDAZOLE [Flagyl] 500 mg PO Q8HR #21 tab 04/05/18 [Rx] Omeprazole [PriLOSEC] 40 mg PO AC-BRKFST #14 capsule. 04/06/18 [Rx] Follow up Appointment(s)/Referral(s): Soledad Hernandez MD [Primary Care Provider] - 3 Days Galileo Solomon MD [STAFF PHYSICIAN] - 2 Weeks Activity/Diet/Wound Care/Special Instructions: diet soft bland act limited till f/u Discharge Disposition: HOME SELF-CARE
--- NOTE | 2018-04-06 13:29 | CDI ---
Last Revision, May 2017 Documentation Clarification Form Date: 04/06/18 From: Maggie Keene RN Admit Date: 04/02/2018 2:54:00 PM Patient Name: Estela Lanier Visit Number: [id number] ATTENTION: The Clinical Documentation Specialists (CDI) and [facility] Coding Staff appreciate your assistance in clarifying documentation. Please respond to the clarification below the line at the bottom and electronically sign. The CDI & [facility] Coding staff will review the response and follow-up if needed. Please note: Queries are made part of the Legal Health Record. If you have any questions, please contact the author of this message via ITS. Aneesh Hughes MD, Can you please render your opinion on the following documentation? Admitted with abdominal pain, lost several pounds over the last several months, colitis History/Risk Factors: memory impairment, hypothyroidism, IBS, smoker,bipolar, depression Clinical Indicators: ED note: Patient states that she's lost 60 pounds over the last several months Consult 04/03; "she is reporting fatigue, weakness and change in weight secondary to decreased oral intake. Labs: Albumin 2.4, Total Protein 4.8 Current BMI: 18.7 Insufficient energy intake: Weight Loss: Per RD unintended weight loss, poor appetite, abdominal distension Treatment: Dietary Consult: RD Supplements: Ensure Enlive Lab monitoring protein and albumin In your professional opinion, can you please clarify if these findings signify one of the following conditions? Mild Protein-Calorie Malnutrition Moderate Protein-Calorie Malnutrition Severe Protein-Calorie Malnutrition Other condition, please specify Unable to determine MTDD
[2018-04-06] MEDS: oxyCODONE-APAP 10-325MG 1 EACH TAB PO PRN (15:11)
--- NOTE | 2018-04-14 12:13 | CDI ---
Last Revision, May 2017 Documentation Clarification Form Date: 04/06/2018 1:29:00 PM From: Maggie Keene Admit Date: 04/02/2018 2:54:00 PM Patient Name: Estela Lanier Visit Number: [id number] ATTENTION: The Clinical Documentation Specialists (CDI) and [facility] Coding Staff appreciate your assistance in clarifying documentation. Please respond to the clarification below the line at the bottom and electronically sign. The CDI & [facility] Coding staff will review the response and follow-up if needed. Please note: Queries are made part of the Legal Health Record. If you have any questions, please contact the author of this message via ITS. Aneesh Hughes MD, Can you please render your opinion on the following documentation? Admitted with abdominal pain, lost several pounds over the last several months, colitis History/Risk Factors: memory impairment, hypothyroidism, IBS, smoker,bipolar, depression Clinical Indicators: ED note: Patient states that she's lost 60 pounds over the last several months Consult 04/03; "she is reporting fatigue, weakness and change in weight secondary to decreased oral intake. Labs: Albumin 2.4, Total Protein 4.8 Current BMI: 18.7 Insufficient energy intake: Weight Loss: Per RD unintended weight loss, poor appetite, abdominal distension Treatment: Dietary Consult: RD Supplements: Ensure Enlive Lab monitoring protein and albumin In your professional opinion, can you please clarify if these findings signify one of the following conditions? Mild Protein-Calorie Malnutrition Moderate Protein-Calorie Malnutrition Severe Protein-Calorie Malnutrition Other condition, please specify Unable to determine Mild Protein-Calorie Malnutrition MTDD
== END 2018-04-06 16:04 | disposition home or self-care (01) | DRG 392 ==
LOC: EC 09:33 → 3NMEDONC 14:54
PROVIDERS: ADMIT Hospitalist; ATTEND Hospitalist
DX: K52.9 Noninfective gastroenteritis and colitis, unspecified (principal); F11.20 Opioid dependence, uncomplicated; F31.30 Bipolar disorder, current episode depressed, mild or moderate severity, unspecified; E44.1 Mild protein-calorie malnutrition; Z68.1 Body mass index [BMI] 19.9 or less, adult; E86.0 Dehydration; E89.0 Postprocedural hypothyroidism; F17.200 Nicotine dependence, unspecified, uncomplicated; G25.81 Restless legs syndrome; G62.9 Polyneuropathy, unspecified; G89.4 Chronic pain syndrome; I95.9 Hypotension, unspecified; M79.7 Fibromyalgia; Z79.891 Long term (current) use of opiate analgesic; Z80.8 Family history of malignant neoplasm of other organs or systems; Z83.3 Family history of diabetes mellitus; Z86.19 Personal history of other infectious and parasitic diseases; Z86.73 Personal history of transient ischemic attack (TIA), and cerebral infarction without residual deficits; Z87.01 Personal history of pneumonia (recurrent); Z98.891 History of uterine scar from previous surgery; Z79.890 Hormone replacement therapy; Z79.899 Other long term (current) drug therapy; Z88.8 Allergy status to other drugs, medicaments and biological substances; Z90.49 Acquired absence of other specified parts of digestive tract
CPT/HCPCS: 36415; 74177; 80048; 80053; 81001; 82150; 82533; 83605; 83690; 85025; 96361; 96374; 96375; 99285

== ENCOUNTER 2021-01-21 00:27 | Emergency (ER) | payer MEDICARE ==
[2021-01-21 00:43] VITALS: TEMP 97.4
[2021-01-21] MEDS ORDERED: diphenhydrAMINE 50 MG/ML 1 ML VIAL IM STA (01:03)
[2021-01-21] MEDS ORDERED: LORazepam 2 MG/ML INJ IM STA (01:03)
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
--- NOTE | 2021-01-21 03:22 | CT ---
EXAMINATION TYPE: CT brain faisal parikh con DATE OF EXAM: 01/21/2021 COMPARISON: None HISTORY: FALL headache. Neck pain. CT DLP: 1310.6 mGycm Automated exposure control for dose reduction was used. Images of the brain and cervical spine without contrast. Ventricles and sulci appear normal. There is no mass effect nor midline shift. There is no sign of in tracranial hemorrhage. The calvarium is intact. There are some skin saulo over the left frontal sca lp region. The skull base is intact. There is normal aeration of the mastoid sinuses. The cervical vertebra show normal alignment. There is previous anterior fusion surgery at C4-5 and C5 -6. The posterior elements are intact. There is no compression fracture. Prevertebral soft tissues ar e intact. I see no focal bone destruction. IMPRESSION: Negative CT scan of the brain. Previous cervical spine surgery. No acute abnormality of the cervical spine. No fracture.
[2021-01-21 06:11] VITALS: BP 110/60; PULSE 88; RESP 16
== END 2021-01-21 08:36 | disposition home or self-care (01) ==
LOC: EC 00:27
DX: S01.01XA Laceration without foreign body of scalp, initial encounter (principal); F10.129 Alcohol abuse with intoxication, unspecified; F17.200 Nicotine dependence, unspecified, uncomplicated; M79.7 Fibromyalgia; E07.9 Disorder of thyroid, unspecified; Z86.73 Personal history of transient ischemic attack (TIA), and cerebral infarction without residual deficits; Z88.8 Allergy status to other drugs, medicaments and biological substances; Z79.890 Hormone replacement therapy; W18.09XA Striking against other object with subsequent fall, initial encounter; Z79.899 Other long term (current) drug therapy
CPT/HCPCS: 72125; 70450; 99284; 12002; 96372; J2060; J1200